=== PATIENT | female | born 1980 | race American Indian/Alaskan Native ===

== ENCOUNTER 2017-05-27 11:00 | Inpatient (IN) | payer MEDICAID ==
[2017-05-22 14:29] LABS: Basophils % (Auto) 0.7 % (0.0-1.8); Eosinophils % (Auto) 1.9 % (0.0-4.3); Hematocrit 34.8 % (30.3-42.9); Hemoglobin 10.9 gm/dl (10.1-14.3); Mean Corpuscular HGB Conc 31 % (30-34); Mean Corpuscular Volume 76 fl (79-97); Platelet Count 444 K/mm3 (140-440); White Blood Count 8.2 K/mm3 (4.5-11.0)
[2017-05-22 14:59] LABS: Mean Corpuscular Hemoglobin 24 pg (28-32)
--- NOTE | 2017-05-22 15:05 | Anesthesia Consultation ---
Anesthesia Consult and Med Hx Date of service: 05/27/17 - Airway Anesthetic Teeth Evaluation: Good ROM Head & Neck: Adequate Mental/Hyoid Distance: Adequate Mallampati Class: Class II Intubation Access Assessment: Good - Pulmonary Exam CTA: Yes - Cardiac Exam Cardiac Exam: No Murmur - Pre-Operative Health Status ASA Pre-Surgery Classification: ASA2 Proposed Anesthetic Plan: General Nerve Block: TAP - Pulmonary Hx Smoking: Yes - Central Nervous System Hx Psychiatric Problems: No - Other Systems Hx Cancer: No
[2017-05-27] MEDS ORDERED: LACTATED RINGERS 1,000 ML ONE ×2 (12:10→14:01)
[2017-05-27] MEDS ORDERED: XYLOCAINE 1% 20 mL ONE (12:15)
[2017-05-27] MEDS ORDERED: CLONIDINE 1,000 MCG/10 ML VIAL EP ONE (12:15)
[2017-05-27] MEDS ORDERED: MARCAINE 0.5% 30 ML INFILTRATI ONE (12:15)
[2017-05-27] MEDS ORDERED: DECADRON ONE ×2 (12:15→13:35)
--- NOTE | 2017-05-27 12:16 | History and Physical Report ---
History of Present Illness Date of examination: 05/27/17 Chief complaint: Symptomatic fibroid uterus History of present illness: Pt is a 36yo BF LMP 04/29/17 presents for surgical evaluation and treatment of prolonged heavy vaginal bleeding due to uterine fibroids. Pelvic u /s showed an enlarged uterus 12 x 10 x 8cm with multiple fibroids. Endometrial biopsy was benign, and so pt is therefore scheduled for a Robotic Assisted Total Hysterectomy with Ovarian conservation. 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 Family/Genetic History: none Social history: no significant social history, Medications and Allergies Allergies Allergy/AdvReac Type Severity Reaction Status Date / Time No Known Allergies Allergy Verified 05/22/17 15:30 Home Medications Medication Instructions Recorded Confirmed Last Taken Type Ibuprofen 800 mg PO Q8H 05/21/17 05/27/17 05/20/17 History Active Meds: Active Medications Famotidine (Pepcid) 20 mg PO PREOP NR Stop: 05/27/17 13:00 Lactated Ringer's (Lactated Ringers) 1,000 mls @ 100 mls/hr IV DIRECT ULISSES Midazolam HCl (Versed) 2 mg IV PREOP NR Stop: 05/27/17 13:01 Review of Systems All systems: negative - Vital Signs Vital signs: Vital Signs Temp Pulse Resp BP 98.2 F 74 16 124/80 05/22/17 14:00 05/22/17 14:00 05/22/17 14:00 05/22/17 14:00 Temp Pulse Resp BP Pulse Ox 98.3 F 70 16 125/64 99 05/27/17 11:15 05/27/17 11:15 05/27/17 11:15 05/27/17 11:15 05/27/17 11:15 - Physical Exam Breasts: Positive: deferred Cardiovascular: Regular rate Lungs: Positive: Clear to auscultation Abdomen: Positive: normal appearance Genitourinary (Female): Positive: normal external genitalia Vagina: Positive: normal moisture Uterus: Positive: enlarged Extremities: Positive: normal Results Result Diagrams: 05/22/17 14:05 All other labs normal. Ultrasound: report reviewed Assessment and Plan - Patient Problems (1) Uterine fibroid Onset Date: 05/27/17 Current Visit: Yes Status: Acute Qualifiers: Uterine leiomyoma location: submucous and subserous Qualified Code(s): D25.0 - Submucous leiomyoma of uterus; D25.2 - Subserosal leiomyoma of uterus; D25.2 - Subserosal leiomyoma of uterus Plan to address problem: A: Symptomatic fibroid uterus Menorrhagia P: Admit for a Robotic Assisted Total Hysterectomy with Bilateral Salpingectomy (2) Menorrhagia with irregular cycle Onset Date: 05/27/17 Current Visit: Yes Status: Acute
[2017-05-27] MEDS ORDERED: SUBLIMAZE ONE ×2 (12:18→12:31)
[2017-05-27] MEDS ORDERED: NEURONTIN ONE (12:18)
[2017-05-27] MEDS ORDERED: PEPCID PO NR (12:30)
[2017-05-27] MEDS ORDERED: VERSED IV NR (12:30)
[2017-05-27] MEDS ORDERED: LACTATED RINGERS 1,000 ML IV SCH (12:30)
[2017-05-27] MEDS ORDERED: ZEMURON IV ONE ×2 (12:31→14:54)
[2017-05-27] MEDS ORDERED: XYLOCAINE MPF 2% ONE (12:31)
[2017-05-27] MEDS ORDERED: DIPRIVAN 10 MG/ML IV ONE (12:31)
[2017-05-27] MEDS ORDERED: NEOSPORIN GU IR ONE ×2 (12:36→13:46)
[2017-05-27] MEDS ORDERED: MARCAINE 0.25% INFILTRATI ONE (12:47)
[2017-05-27] MEDS ORDERED: ANCEF/STERILE WATER 2 GM/20 ML 2 GM/20 ML SYRINGE IV SCH (13:00)
--- NOTE | 2017-05-27 13:08 | Anesthesia Day of Surgery ---
Anesthesia Day of Surgery - Day of Surgery Patient Examined: Yes Patient H&P Reviewed: Yes Patient is NPO: Yes
[2017-05-27] MEDS ORDERED: WATER FOR IRRIG STERILE IR ONE (13:46)
[2017-05-27] MEDS ORDERED: NACL 0.9% IR ONE ×2 (13:46)
[2017-05-27] MEDS ORDERED: DILAUDID ONE (14:42)
[2017-05-27] MEDS ORDERED: ZOFRAN ONE (15:18)
[2017-05-27] MEDS ORDERED: NEOSTIGMINE ONE ×2 (15:20→15:23)
[2017-05-27] MEDS ORDERED: ROBINUL ONE ×3 (15:20→15:23)
[2017-05-27] MEDS ORDERED: SODIUM CHLORIDE FLUSH SYRINGE 10 ML IV PRN (15:26)
[2017-05-27] MEDS ORDERED: MILK OF MAGNESIA PO PRN (15:26)
[2017-05-27] MEDS ORDERED: TYLENOL PO PRN (15:26)
[2017-05-27] MEDS ORDERED: ZOFRAN IV PRN (15:26)
[2017-05-27] MEDS ORDERED: NORCO 5/325 PO PRN (15:26)
[2017-05-27] MEDS ORDERED: PERCOCET 5/325 PO PRN (15:26)
[2017-05-27] MEDS ORDERED: NARCAN 0.4 MG/1 ML IV PRN (15:26)
--- NOTE | 2017-05-27 15:57 | Operative Report ---
Operative Report Operative Report: Date of procedure: 05/27/2017 Pre-operative diagnosis: 1. Symptomatic fibroid uterus 2. Menorrhagia Post-operative diagnosis: Same Procedure name(s): 1. Robotic-assisted total hysterectomy 2. Bilateral salpingectomy Surgeon: Alfa Soto MD Cigar Head Pegger: Carina Dowell SA Anesthesia: TAMAR Block followed by general endotracheal intubation EBL: 100 mL's Findings: A 14 week size multi-myomatous uterus. Normal tubes and ovaries bilaterally. Procedure: After the patient was first correctly identified, she was prepped and draped in the usual sterile fashion and placed in the dorsolithotomy position. The bladder was first catheterized using Santiago catheter and the speculum was placed in the vagina and the anterior lip of the cervix was grasped using a single-tooth tenaculum, and the large Vesicare cup was placed. The tenaculum and speculum was then removed from the vagina and attention was then turned to the abdomen. The skin knife was used to make a small incision approximately 5 cm above the umbilicus through which a 12 mm trocar was placed under direct visualization. After adequate amount of abdominal insufflation visualization of the pelvic organs found the uterus to be enlarged and the tubes and ovaries are found to be normal bilaterally. A right lateral incision was made through which a 5 mm trocar was placed under direct visualization. A right and left paramedian incision was made through which the 8 mm trochars were placed under direct visualization. The patient was then placed in steep Trendelenburg positioning and the robot was docked on the patient's left side. After all the robotic ports were connected, and adequate functioning of the robotic arms were tested, the surgeon then proceeded to the console to begin the hysterectomy. First the left round ligament was grasped, cauterized and cut, the left utero- ovarian ligaments were grasped, cauterized and cut, and the left fallopian tube also grasped, cauterized and cut along the mesosalpinx, thus freeing the left ovary from the left pelvic sidewall. The same procedure was performed on the right. The right round ligament was grasped, cauterized and cut, the right utero-ovarian ligaments were grasped, cauterized and cut, and the right fallopian tube also grasped, cauterized and cut along the mesosalpinx, thus freeing the right ovary from the right pelvic sidewall. The bladder flap was taken down anteriorly and the uterine vessels were grasped, cauterized and cut bilaterally. The cardinal ligaments were sequentially grasped, cauterized and cut down to the level of the uterosacral ligaments. At this time the posterior colpotomy was performed over the Vcare cup, and the cervix was circumscribed beginning posteriorly and meeting anteriorly until the cervix was freed. The cervix, uterus and fallopian tubes were then removed through the vagina and sent to pathology. The vaginal cuff was then closed using 2-0 Vloc suture in a running fashion. Irrigation was then performed and after good hemostasis was achieved and the procedure was considered complete. The Tisseel sealant was then sprayed across the vaginal cuff site, and after excellent hemostasis was assured, Interceed was placed across the vaginal cuff site. All instruments were then removed from the abdominal cavity, and each incision was closed using 0 Vicryl suture in a [id number] configuration on the fascia followed by 4- 0 Monocryl suture in a subcuticular fashion on the skin. Each incision was also infiltrated using 0.5% Marcaine solution. The vaginal pack was removed. The patient tolerated the procedure well and was transported to the recovery room in stable condition.
[2017-05-27] MEDS ORDERED: ANCEF/NS 1 GM/50 ML 1 GM/50 ML BAG IV SCH (16:00)
[2017-05-27] MEDS ORDERED: MORPHINE IV PRN ×2 (16:02→16:03)
--- NOTE | 2017-05-27 16:24 | Post Anesthesia Evaluation ---
- Post Anesthesia Evaluation Patient Participated: Yes Airway Patent: Yes Stable Respiratory Function: Yes Temp > 96.8F: Yes Pain Manageable: Yes Adequeate Hydration: Yes Anesthesia Complications: No Block Receding Appropriately: Not Applicable
[2017-05-27] MEDS: TORADOL IV SCH (18:37)
[2017-05-27] MEDS: D5LR 1,000 ML IV SCH (18:45)
[2017-05-28] MEDS: TORADOL IV SCH ×2 (00:31→05:59)
[2017-05-28] MEDS: COLACE PO SCH ×2 (01:30→09:25)
[2017-05-28] MEDS: D5LR 1,000 ML IV SCH (03:09)
[2017-05-28] MEDS: ceFAZolin 1 GM in NACL 0.9% 20 ML IV SCH ×2 (03:11→09:28)
[2017-05-28] MEDS ORDERED: MYLICON PO PRN (03:31)
[2017-05-28 06:16] LABS: Hemoglobin 9.2 gm/dl (10.1-14.3)
[2017-05-28 08:41] VITALS: BP 147/76
--- NOTE | 2017-05-28 08:51 | Progress Note ---
Assessment and Plan - Patient Problems (1) Uterine fibroid Onset Date: 05/27/17 Current Visit: Yes Status: Resolved Qualifiers: Uterine leiomyoma location: submucous and subserous Qualified Code(s): D25.0 - Submucous leiomyoma of uterus; D25.2 - Subserosal leiomyoma of uterus; D25.2 - Subserosal leiomyoma of uterus (2) Menorrhagia with irregular cycle Onset Date: 05/27/17 Current Visit: Yes Status: Resolved (3) Status post robot-assisted surgical procedure Onset Date: 05/28/17 Current Visit: Yes Status: Resolved Plan to address problem: A: S/P RATH - POD #1 Doing well P: May go home this afternoon Subjective - Subjective Date of service: 05/28/17 Principal diagnosis: s/p RATH - POD #1 Interval history: Pt is s/p a Robotic Assisted Total Hysterectomy with Bilateral salpingectomy and feeling well. She complains of right shoulder pains. Patient reports: appetite normal, voiding normally, pain well controlled, flatus , ambulating normally, no nauseated Objective - Vital Signs Latest vital signs: Vital Signs Temp Pulse Resp BP BP Pulse Ox 05/28/17 08:40 98.6 F 71 20 147/76 100 05/28/17 08:37 98.7 F 73 20 170/104 98 05/28/17 06:29 18 05/28/17 05:59 18 05/28/17 04:30 98.6 F 70 18 133/64 05/28/17 01:01 16 05/28/17 00:52 98.8 F 99 H 18 140/89 05/28/17 00:31 16 05/27/17 20:35 98.8 F 83 18 135/71 05/27/17 17:30 99.0 F 77 14 138/78 100 05/27/17 17:23 17 05/27/17 17:15 78 15 133/71 100 05/27/17 17:05 98.2 F 78 16 142/70 97 05/27/17 17:00 77 14 135/71 100 05/27/17 16:53 15 05/27/17 16:45 70 13 132/64 100 05/27/17 16:30 78 16 137/54 100 05/27/17 16:15 67 16 132/62 100 05/27/17 16:00 66 15 122/60 100 05/27/17 15:55 65 16 130/59 100 05/27/17 15:50 67 16 129/59 100 05/27/17 15:45 75 17 124/67 100 05/27/17 15:39 98.4 F 75 17 131/64 96 05/27/17 13:10 78 13 145/67 100 05/27/17 13:05 65 13 130/73 100 05/27/17 13:00 63 12 149/59 100 05/27/17 12:55 67 15 149/69 100 05/27/17 12:50 60 16 149/76 100 05/27/17 12:45 64 13 135/56 100 05/27/17 12:40 72 11 L 137/42 100 05/27/17 11:15 98.3 F 70 16 125/64 99 Intake and Output 05/27/17 05/28/17 05/28/17 22:59 06:59 14:59 Intake Total 1190 1120 Output Total 1100 1000 Balance 90 120 Intake: IV 950 1000 D5lr 1,000 ml @ 125 mls/ 1000 hr IV DIRECT [facility] Rx#: [id number] Oral 240 120 Output: Urine 1100 1000 Indwelling Catheter 600 1000 Other: Total, Intake Amount 240 120 Total, Output Amount 600 600 - Exam Breasts: Present: deferred Cardiovascular: Present: Regular rate Lungs: Present: Clear to auscultation Abdomen: Present: normal appearance Extremities: Present: normal Incision: Present: normal, dry, intact - Labs Labs: Abnormal lab results 05/28/17 Range/Units 04:00 Hgb 9.2 L (10.1-14.3) gm/dl Hct 29.0 L (30.3-42.9) % Laboratory Tests 05/22/17 05/22/17 05/27/17 14:05 14:05 11:59 WBC 8.2 RBC 4.60 Hgb 10.9 Hct 34.8 MCV 76 L MCH 24 L MCHC 31 RDW 20.0 H Plt Count 444 H Lymph % (Auto) 26.1 [place] % (Auto) 7.0 Eos % (Auto) 1.9 Baso % (Auto) 0.7 Lymph # 2.1 [place] # 0.6 Eos # 0.2 Baso # 0.1 Seg Neutrophils % 64.3 Seg Neutrophils # 5.3 HCG, Qual Negative Blood Type O POSITIVE Antibody Screen Negative 05/28/17 04:00 WBC RBC Hgb 9.2 L Hct 29.0 L MCV MCH MCHC RDW Plt Count Lymph % (Auto) [place] % (Auto) Eos % (Auto) Baso % (Auto) Lymph # [place] # Eos # Baso # Seg Neutrophils % Seg Neutrophils # HCG, Qual Blood Type Antibody Screen
--- NOTE | 2017-05-28 09:23 | Discharge Summary ---
Providers - Providers Date of Admission: 05/27/17 15:26 Date of discharge: 05/28/17 Attending physician: JOSE BIRMINGHAM Hospitalization Reason for admission: other (Symptomatic uterine fibroids; Menorrhagia) Procedure: other (Robotic Assisted Total Hysterectomy with Bilateral Salpingectomy) Laceration: none Incision: normal, dry, intact Other procedures: none complications: none Discharge diagnosis: other (s/p RATH) Hospital course: Pt is a 36yo BF LMP 04/29/17 who presented for surgical evaluation and treatment of prolonged heavy vaginal bleeding due to uterine fibroids. She underwent an uncomplicated Robotic Assisted Total Hysterectomy with Bilateral Salpingectomy, and by POD #1 she was tolerating a reg diet without nausea or vomiting, ambulating and voiding without difficulty. She was therefore discharged to home on POD #1 in stable condition. Condition at discharge: Good Disposition: DC-01 TO HOME OR SELFCARE - Discharge Diagnoses (1) Uterine fibroid Status: Resolved Qualifiers: Uterine leiomyoma location: submucous and subserous Qualified Code(s): D25.0 - Submucous leiomyoma of uterus; D25.2 - Subserosal leiomyoma of uterus; D25.2 - Subserosal leiomyoma of uterus (2) Menorrhagia with irregular cycle Status: Resolved Plan - Discharge Medications Prescriptions: HYDROcodone/APAP 5-325 [[place] 5-325 mg TAB] 1 each PO Q6HR PRN #30 tablet PRN Reason: Pain, Moderate (4-6) Ibuprofen 800 mg PO Q8H #30 tablet - Provider Discharge Summary Activity: routine, no sex for 6 weeks, no heavy lifting 4 weeks, no strenuous exercise Diet: routine Instructions: routine Additional instructions: [] Smoking cessation referral if applicable(refer to patient education folder for contact #) [] Refer to [facility] Booklet Call your doctor immediately for: * Fever > 100.5 * Heavy vaginal bleeding ( >1 pad per hour) * Severe persistent headache * Shortness of breath * Reddened, hot, painful area to leg or breast * Drainage or odor from incision. * Keep incision clean and dry at all times and follow doctor's instructions regarding bathing/showering - Follow up plan Follow up: Adolfo ECHEVERRIA [Other] - 7 Days JOSE BIRMINGHAM MD [Staff Physician] - 14 Days
== END 2017-05-28 13:00 | disposition home or self-care (01) | DRG 742 ==
LOC: OR 11:00 → OB 15:26
PROVIDERS: ADMIT Obstetrics & Gynecology; ATTEND Obstetrics & Gynecology
PROC: 0UT9FZZ Resection of Uterus, Via Natural or Artificial Opening With Percutaneous Endoscopic Assistance (ICD-10-PCS; principal; 2017-05-27)
PROC: 0UT7FZZ Resection of Bilateral Fallopian Tubes, Via Natural or Artificial Opening With Percutaneous Endoscopic Assistance (ICD-10-PCS; 2017-05-27)
PROC: 8E0W4CZ Robotic Assisted Procedure of Trunk Region, Percutaneous Endoscopic Approach (ICD-10-PCS; 2017-05-27)
DX: D25.1 Intramural leiomyoma of uterus (principal); R71.0 Precipitous drop in hematocrit; Z87.891 Personal history of nicotine dependence
CPT/HCPCS: 36415; 64450; 84703; 85014; 85018; 85025; 86850; 86900; 86901; 88307; A4217; C1765; C9250; J0690; J0735; J1100; J1170; J1885; J2250; J2270; J2405; J2704; J2710; J3010; J7120; J7121

== ENCOUNTER 2020-12-25 14:05 | Emergency (ER) | payer SELFPAY ==
[2020-12-25 15:48] VITALS: BP 153/81
--- NOTE | 2020-12-25 15:50 | Event Note ---
ED Screening Note Date of service: 12/25/20 Time: 15:50 ED Screening Note: Patient complains of right knee pain and swelling x2 weeks Denies injury Full range of motion noted on exam This initial assessment/diagnostic orders/clinical plan/treatment(s) is/are subject to change based on patients health status, clinical progression and re- assessment by fellow clinical providers in the ED. Further treatment and workup at subsequent clinical providers discretion. Patient/guardian urged not to elope from the ED as their condition may be serious if not clinically assessed and managed. Initial orders include: X-ray
--- NOTE | 2020-12-25 16:43 | XRay Report ---
RIGHT KNEE 3 VIEWS INDICATION / CLINICAL INFORMATION: Right knee pain and swelling without known injury. COMPARISON: None available. FINDINGS: BONES / JOINT(S): There is a moderately large suprapatellar joint effusion. No significant arthritis. There is a small bone island involving the distal femoral metaphysis medially. I see no evidence of acute fracture, subluxation or destructive lesion. SOFT TISSUES: No significant abnormality. ADDITIONAL FINDINGS: None. IMPRESSION: Moderately large suprapatellar joint effusion without acute osseous abnormality. Signer Name: Marko Piedra MD Signed: 12/25/2020 4:39 PM Workstation Name: [id number]
--- NOTE | 2020-12-25 17:33 | Emergency Department Report ---
ED Lower Extremity HPI - General Chief Complaint: Extremity Injury, Lower Stated Complaint: RT KNEE PAIN Time Seen by Provider: 12/25/20 15:49 Source: patient Mode of arrival: Ambulatory Limitations: No Limitations - History of Present Illness Initial Comments: This is a 40-year-old female nontoxic, well nourished in appearance, no acute signs of distress presents to the ED with c/o of right knee pain 2 weeks. Patient stated has been walking a lot prior to symptoms. Patient denies any injuries or trauma. Patient denies any numbness, tingling, fever, chills, nausea, vomiting, chest pain, shortness of breath, headache, stiff neck. Patient denies any joint swelling or joint redness. Patient denies decreased range of motion or abnormal gait but stated has some pain with ROM. Patient denies any allergies. MD Complaint: knee injury -: week(s) Injury: Knee: Left Severity: mild Severity scale (0 -10): 3 Improves With: immobilization Worsens With: palpation Associated Symptoms: swelling, ambulatory. denies: snap/pop sensation, numbness, tingling, unable to bear weight, able to partially bear weight - Related Data Previous Rx's Medication Instructions Recorded Last Taken Type HYDROcodone/APAP 5-325 [[place] 1 each PO Q6HR PRN #30 tablet 05/28/17 Unknown Rx 5-325 mg TAB] Ibuprofen [Ibuprofen 800] 800 mg PO Q8H #30 tablet 05/28/17 Unknown Rx Naproxen 500 mg PO Q12H PRN #12 tablet 12/25/20 Unknown Rx Allergies Allergy/AdvReac Type Severity Reaction Status Date / Time No Known Allergies Allergy Verified 05/22/17 15:30 ED Review of Systems ROS: Stated complaint: RT KNEE PAIN Other details as noted in HPI Comment: All other systems reviewed and negative Constitutional: denies: chills, fever Eyes: denies: eye pain, eye discharge, vision change ENT: denies: ear pain, throat pain Respiratory: denies: cough, shortness of breath, wheezing Cardiovascular: denies: chest pain, palpitations Endocrine: no symptoms reported Gastrointestinal: denies: abdominal pain, nausea, diarrhea Genitourinary: denies: urgency, dysuria, discharge Musculoskeletal: denies: back pain, joint swelling, arthralgia Skin: denies: rash, lesions Neurological: denies: headache, weakness, paresthesias Psychiatric: denies: anxiety, depression Hematological/Lymphatic: denies: easy bleeding, easy bruising ED Past Medical Hx - Past Medical History Previous Medical History?: No - Surgical History Past Surgical History?: Yes Additional Surgical History: hysterectomy - Social History Smoking Status: Current Every Day Smoker - Medications Home Medications: Home Medications Medication Instructions Recorded Confirmed Last Taken Type HYDROcodone/APAP 5-325 [[place] 1 each PO Q6HR PRN #30 tablet 05/28/17 Unknown Rx 5-325 mg TAB] Ibuprofen [Ibuprofen 800] 800 mg PO Q8H #30 tablet 05/28/17 Unknown Rx Naproxen 500 mg PO Q12H PRN #12 tablet 12/25/20 Unknown Rx ED Physical Exam - General Limitations: No Limitations General appearance: alert, in no apparent distress - Head Head exam: Present: atraumatic, normocephalic - Eye Eye exam: Present: normal appearance - Neck Neck exam: Present: normal inspection, full ROM. Absent: lymphadenopathy - Respiratory Respiratory exam: Absent: respiratory distress - Cardiovascular Cardiovascular Exam: Present: regular rate - Extremities Exam Extremities exam: Present: full ROM, tenderness, normal capillary refill. Absent: pedal edema, joint swelling, calf tenderness - Expanded Lower Extremity Exam Left Hip exam: Present: normal inspection, full ROM. Absent: tenderness, swelling Upper Leg exam: Present: normal inspection, full ROM. Absent: tenderness, swelling Knee exam: Present: full ROM, tenderness, swelling, full knee extension. Absent: abrasion, laceration, ecchymosis, deformity, crepidus, dislocation, erythema, effusion, pain w/ pronation/supination, posterior draw sign, pain/laxity with valgus, pain/laxity with varus Lower Leg exam: Present: normal inspection, full ROM. Absent: tenderness, swelling Ankle exam: Present: normal inspection, full ROM. Absent: tenderness, swelling Foot/Toe exam: Present: normal inspection, full ROM. Absent: tenderness, swelling Neuro vascular tendon exam: Present: no vascular compromise Gait: Positive: observed and normal - Back Exam Back exam: Present: normal inspection, full ROM - Neurological Exam Neurological exam: Present: alert, oriented X3, normal gait - Psychiatric Psychiatric exam: Present: normal affect, normal mood - Skin Skin exam: Present: warm, dry, intact, normal color. Absent: rash ED Course Vital Signs 07/12/21 15:43 Temperature 98.9 F Pulse Rate 82 Respiratory 20 Rate Blood Pressure 153/81 O2 Sat by Pulse 100 Oximetry - Reevaluation(s) Reevaluation #1: 12/25/20 17:33 Patient is speaking in full sentences with no signs of distress noted. ED Lower Extremity MDM - Radiology Data [facility] [address] [place] [address] XRay Report Signed Patient: ASHTYN VASQUEZ MR#: [id number] : 1980 Acct:[id number] Age/Sex: 40 / F ADM Date: 12/25/20 Loc: ED Attending Dr: Ordering Physician: VASQUEZ MCGARRY Date of Service: 12/25/20 Procedure(s): XR knee 3V RT Accession Number(s): [id number] cc: VASQUEZ MCGARRY Fluoro Time In Minutes: RIGHT KNEE 3 VIEWS INDICATION / CLINICAL INFORMATION: Right knee pain and swelling without known injury. COMPARISON: None available. FINDINGS: BONES / JOINT(S): There is a moderately large suprapatellar joint effusion. No significant arthritis. There is a small bone island involving the distal femoral metaphysis medially. I see no evidence of acute fracture, subluxation or destructive lesion. SOFT TISSUES: No significant abnormality. ADDITIONAL FINDINGS: None. IMPRESSION: Moderately large suprapatellar joint effusion without acute osseous abnormality. Signer Name: Samantha Piedra MD Signed: 12/25/2020 4:39 PM Workstation Name: [id number] Transcribed By: RT Dictated By: Samantha Piedra MD Electronically Authenticated By: Samantha Piedra MD Signed Date/Time: 12/25/201638 DD/ 37 TD/TT: - Medical Decision Making This is a 40-year-old female that presents with left knee strain. Patient is stable and was examined by me. I referred patient to an orthopedic doctor for further evaluation for possible MRI. X-ray has been obtained and dictated by the radiologist. Patient is notified of the x-ray report with noted by the patient. Patient does have normal gait with no joint swelling. No ecchymosis. no joint redness or swelling. Not warm to touch. No signs of cellulites or septic joint present. Patient received a knee immobilize. Patient was instructed to RICE therapy. Patient is discharged with Naproxen. At time of discharge, the patient does not seem toxic or ill in appearance. No acute signs of distress noted. Patient agrees to discharge treatment plan of care. No further questions noted by the patient. Critical care attestation.: If time is entered above; I have spent that time in minutes in the direct care of this critically ill patient, excluding procedure time. ED Disposition Clinical Impression: Strain of left knee Qualifiers: Encounter type: initial encounter Qualified Code(s): S86.912A - Strain of unspecified muscle(s) and tendon(s) at lower leg level, left leg, initial encounter Disposition: TO HOME OR SELFCARE Is pt being admited?: No Does the pt Need Aspirin: No Condition: Stable Instructions: RICE Therapy for Routine Care of Injuries, [id number], How to Use a Knee Immobilizer Additional Instructions: Follow-up with a orthopedic doctor in 3-5 days or if symptoms worsen and continue return to emergency room as soon as possible. No physical activity that extremity until cleared by orthopedic doctor Prescriptions: Naproxen 500 mg PO Q12H PRN #12 tablet PRN Reason: Pain , Severe (7-10) Referrals: ANGELICA MORALESADELITAUPTON MD SUKUMAR [Primary Care Provider] - 3-5 Days SAMANTHA BOBBY MD [Staff Physician] - 3-5 Days Forms: Work/School Release Form(ED) Time of Disposition: 17:35
== END 2020-12-25 18:17 | disposition home or self-care (01) ==
LOC: ED 14:05
DX: S76.811A Strain of other specified muscles, fascia and tendons at thigh level, right thigh, initial encounter (principal); F17.200 Nicotine dependence, unspecified, uncomplicated; Z90.710 Acquired absence of both cervix and uterus; Z98.890 Other specified postprocedural states; Z79.899 Other long term (current) drug therapy; X58.XXXA Exposure to other specified factors, initial encounter; Y93.89 Activity, other specified; Y92.89 Other specified places as the place of occurrence of the external cause; Y99.8 Other external cause status
CPT/HCPCS: 99283